=== PATIENT | female | born 1990 | race Caucasian/White ===

== ENCOUNTER 2023-04-19 16:35 | Day surgery (SDC) | payer BC, SELFPAY ==
[2023-04-19] VITALS (16 sets, daily range): BP systolic 88–127; BP diastolic 41–91; BMI 20.2; BMI 17.6
--- NOTE | 2023-04-19 10:56 | ED.GENMED ---
History of Present Illness
<Aide Nance PA-C - Last Filed: 04/19/23 17:50>
General
Chief Complaint: Abdominal Symptoms
Source: patient
Exam Limitations: none
Time Seen by Provider: 04/19/23 10:29
Nursing documentation reviewed up to this point in time: agreed with
Travel History
Have you had any contact with someone who has COVID-19?: No
Do you have any symptoms of coronavirus? Fever > 100 degrees, chills, cough, shortness of breath, sore throat, loss of taste or smell, muscle aches, or headache?: No
History of Present Illness
History of Present Illness:
Patient is a 33-year-old female with history of GERD presenting for evaluation of epigastric/right upper quadrant abdominal pain. Symptoms started on Monday after she left the movie theater and ate popcorn. Symptoms have progressively worsened and
are now constant. Pain is worse with movement. She endorses intermittent nausea and chills with a few episodes of vomiting and diarrhea. No known fever. No urinary symptoms. Her LMP was 2 weeks ago.
She tried taking her PPI which did not help.
She is on an oral contraceptive.
Phy Exam
<Aide Nance PA-C - Last Filed: 04/19/23 17:50>
Physical Exam
Physical Exam:
General: Well appearing and non-toxic
Vitals: Vital signs stable, afebrile
HEENT: protecting airway
Neck: appears supple
CV: Regular rate and rhythm, heart sounds normal, no evidence of cyanosis
Resp: Lungs clear bilaterally, no evidence of respiratory distress
Abd: Soft, tender in epigastric and right upper quadrant without rebound or guarding, positive Arredondo sign, non-distended; no CVA tenderness
Extremities: No deformities, no evidence of cyanosis or edema
Neuro: alert and oriented x 3, grossly intact
Psych: Normal affect
Skin: Intact, no rashes
Course
<Aide Nance PA-C - Last Filed: 04/19/23 17:50>
Orders/Labs/Results
Orders:
Orders
04/19/23 Breakfast
NPO
Allow oral meds: No
Allow clear liquids: No
04/19/23 10:53
0.9% Sodium Chloride 1000 ml [Nss] 1,000 ml IV BOLUS
Ondansetron Injectable [Zofran] 4 mg IV NOW STA
Test Result ONCE
US Abdomen Complete/Upper Urgent
Comment:
Reason For Exam: right upper quadrant/epigastric abdominal pain
04/19/23 10:54
Ketorolac [Toradol] 15 mg IV NOW STA
04/19/23 11:03
Electrocardiogram (*1) Urgent
Reason for Study: Abdominal Pain
EKG- Treatment ONCE
04/19/23 11:06
Complete Blood Count/With Diff Urgent
Comprehensive Metabolic Panel Urgent
HCG, Serum Qualitative Screen Urgent
Lipase Urgent
04/19/23 12:28
Piperacillin/Tazo 3.375 Gram [Zosyn] 3.375 gram in 50 ml IV NOW
04/19/23 13:14
Admit Patient As Directed
Co-Sign Provider:
Level of Care: Post Proc/Surg Recovery
Assign to:: Medical/Surgical
Physician / Group: Waylon
Diagnosis: Biliary colic
Reason for Overnight Stay: Standard of Care
Code Status As Directed
Resuscitation Status: Full Code
HYDROmorphone [Dilaudid] 0.5 mg IV Q2HPRN PRN
HYDROmorphone [Dilaudid] 1 mg IV Q2HPRN PRN
Ondansetron Injectable [Zofran] 4 mg IV Q6HPRN PRN
Activity As Directed
Activity Level: Out of Bed-Early Mobility
Anti-embolism (BART) Hose As Directed
Type: Thigh high
Intake/ Output As Directed
Frequency: Per unit guidelines
Vital Signs As Directed
Frequency: Per unit guidelines
DX Deep Vein Thrombosis Video Routine
04/19/23 13:15
Pneumatic Compression Sleeves As Directed
Type: Knee high
Rx Incentive Spirometry [RESP] Routine
Frequency: q1h while awake
# of times per hour: 10
04/19/23 15:00
CefoTEtan [Cefotan] 2,000 mg IV PRE PROCEDURE ONE
Sterile Water [Sterile Water For Injection] 10 ml IV PRE PROCEDURE ONE
04/19/23 15:35
Dexamethasone Sod Phosphate [Decadron] 20 mg .ROUTE .STK-MED ONE
Fentanyl Citrate/Pf [Sublimaze] 100 mcg .ROUTE .STK-MED ONE
Lidocaine HCl/Pf [Xylocaine-Mpf 1% Vial] 50 mg .ROUTE .STK-MED ONE
Midazolam HCl [Versed] 2 mg .ROUTE .STK-MED ONE
Ondansetron Injectable [Zofran] 4 mg .ROUTE .STK-MED ONE
Propofol [Diprivan] 20 ml .ROUTE .STK-MED
Rocuronium [place] [Rocuronium] 50 mg .ROUTE .STK-MED ONE
04/19/23 15:52
HYDROmorphone [Dilaudid] 0.25 mg IV PACU-Q5MPRN PRN
HYDROmorphone [Dilaudid] 0.5 mg IV PACU-Q5MPRN PRN
Meperidine [Demerol] 12.5 mg IV PACU-Q5MPRN PRN
Ondansetron Injectable [Zofran] 4 mg IV PACU-ONCEPRN PRN
Prochlorperazine [Compazine] 5 mg IV PACU-ONCEPRN PRN
Notify MD As Directed
Notify physician if: for SDS patients with known or suspected sleep obstructive sleep apnea, monitor in the
PACU.
Notify MD for any apneic/desaturation episodes
O2 Therapy [RESP] Urgent
Titrate/Wean O2 to maintain O2 sat greater than (%): 92
Special Instructions: -Provide supplemental oxygen to achieve O2 sat of 92% or greater.
-After 15 min, may wean O2 and discontinue if patient is able to maintain O2 sat of 92%
or greater during recovery period.
If patient is a discharge home, without oxygen therapy, notify anestheiologist if
unable to maintain O2 SAT of 92% or greater on room air for MD clearance.
04/19/23 16:00
Normosol (Mult Electrolytes) [Normosol-R] 1,000 ml IV PER PROTOCOL
04/19/23 16:10
HYDROmorphone [Dilaudid] 0.25 mg IV PACU-Q5MPRN PRN
HYDROmorphone [Dilaudid] 0.5 mg IV PACU-Q5MPRN PRN
Meperidine [Demerol] 12.5 mg IV PACU-Q5MPRN PRN
Ondansetron Injectable [Zofran] 4 mg IV PACU-ONCEPRN PRN
Prochlorperazine [Compazine] 5 mg IV PACU-ONCEPRN PRN
Notify MD As Directed
Notify physician if: for SDS patients with known or suspected sleep obstructive sleep apnea, monitor in the
PACU.
Notify MD for any apneic/desaturation episodes
O2 Therapy [RESP] Urgent
Titrate/Wean O2 to maintain O2 sat greater than (%): 92
Special Instructions: -Provide supplemental oxygen to achieve O2 sat of 92% or greater.
-After 15 min, may wean O2 and discontinue if patient is able to maintain O2 sat of 92%
or greater during recovery period.
If patient is a discharge home, without oxygen therapy, notify anestheiologist if
unable to maintain O2 SAT of 92% or greater on room air for MD clearance.
04/19/23 16:15
Normosol (Mult Electrolytes) [Normosol-R] 1,000 ml IV PER PROTOCOL
04/20/23 18:00
Enoxaparin Sodium [Lovenox] 40 mg SC QPM
Abnormal Lab Results
04/19/23
11:06
MCH 31.1 H pg
(27.0-31.0)
04/19/23 11:06
04/19/23 11:06
Vital Signs
Initial and Last Documented VS:
Initial Vital Signs
Temp Pulse Resp BP Pulse Ox
98.0 F 84 16 127/87 98
04/19/23 09:40 04/19/23 09:40 04/19/23 09:40 04/19/23 09:40 04/19/23 09:40
Last Documented Vital Signs
Temp Pulse Resp BP Pulse Ox
98.0 F 86 16 122/91 100
04/19/23 09:40 04/19/23 14:54 04/19/23 09:40 04/19/23 14:38 04/19/23 14:45
Kylielt;Chaparro Perez, - Last Filed: 04/19/23 12:42>
Orders/Labs/Results
Orders:
Orders
04/19/23 Breakfast
NPO
Allow oral meds: No
Allow clear liquids: No
04/19/23 10:53
0.9% Sodium Chloride 1000 ml [Nss] 1,000 ml IV BOLUS
Ondansetron Injectable [Zofran] 4 mg IV NOW STA
Test Result ONCE
US Abdomen Complete/Upper Urgent
Comment:
Reason For Exam: right upper quadrant/epigastric abdominal pain
04/19/23 10:54
Ketorolac [Toradol] 15 mg IV NOW STA
04/19/23 11:03
Electrocardiogram (*1) Urgent
Reason for Study: Abdominal Pain
EKG- Treatment ONCE
04/19/23 11:06
Complete Blood Count/With Diff Urgent
Comprehensive Metabolic Panel Urgent
HCG, Serum Qualitative Screen Urgent
Lipase Urgent
04/19/23 12:28
Piperacillin/Tazo 3.375 Gram [Zosyn] 3.375 gram in 50 ml IV NOW
04/19/23 13:14
Admit Patient As Directed
Co-Sign Provider:
Level of Care: Post Proc/Surg Recovery
Assign to:: Medical/Surgical
Physician / Group: Waylon
Diagnosis: Biliary colic
Reason for Overnight Stay: Standard of Care
Code Status As Directed
Resuscitation Status: Full Code
HYDROmorphone [Dilaudid] 0.5 mg IV Q2HPRN PRN
HYDROmorphone [Dilaudid] 1 mg IV Q2HPRN PRN
Ondansetron Injectable [Zofran] 4 mg IV Q6HPRN PRN
Activity As Directed
Activity Level: Out of Bed-Early Mobility
Anti-embolism (BART) Hose As Directed
Type: Thigh high
Intake/ Output As Directed
Frequency: Per unit guidelines
Vital Signs As Directed
Frequency: Per unit guidelines
DX Deep Vein Thrombosis Video Routine
04/19/23 13:15
Pneumatic Compression Sleeves As Directed
Type: Knee high
Rx Incentive Spirometry [RESP] Routine
Frequency: q1h while awake
# of times per hour: 10
04/19/23 15:00
CefoTEtan [Cefotan] 2,000 mg IV PRE PROCEDURE ONE
Sterile Water [Sterile Water For Injection] 10 ml IV PRE PROCEDURE ONE
04/19/23 15:35
Dexamethasone Sod Phosphate [Decadron] 20 mg .ROUTE .STK-MED ONE
Fentanyl Citrate/Pf [Sublimaze] 100 mcg .ROUTE .STK-MED ONE
Lidocaine HCl/Pf [Xylocaine-Mpf 1% Vial] 50 mg .ROUTE .STK-MED ONE
Midazolam HCl [Versed] 2 mg .ROUTE .STK-MED ONE
Ondansetron Injectable [Zofran] 4 mg .ROUTE .STK-MED ONE
Propofol [Diprivan] 20 ml .ROUTE .STK-MED
Rocuronium [place] [Rocuronium] 50 mg .ROUTE .STK-MED ONE
04/19/23 15:52
HYDROmorphone [Dilaudid] 0.25 mg IV PACU-Q5MPRN PRN
HYDROmorphone [Dilaudid] 0.5 mg IV PACU-Q5MPRN PRN
Meperidine [Demerol] 12.5 mg IV PACU-Q5MPRN PRN
Ondansetron Injectable [Zofran] 4 mg IV PACU-ONCEPRN PRN
Prochlorperazine [Compazine] 5 mg IV PACU-ONCEPRN PRN
Notify MD As Directed
Notify physician if: for SDS patients with known or suspected sleep obstructive sleep apnea, monitor in the
PACU.
Notify MD for any apneic/desaturation episodes
O2 Therapy [RESP] Urgent
Titrate/Wean O2 to maintain O2 sat greater than (%): 92
Special Instructions: -Provide supplemental oxygen to achieve O2 sat of 92% or greater.
-After 15 min, may wean O2 and discontinue if patient is able to maintain O2 sat of 92%
or greater during recovery period.
If patient is a discharge home, without oxygen therapy, notify anestheiologist if
unable to maintain O2 SAT of 92% or greater on room air for MD clearance.
04/19/23 16:00
Normosol (Mult Electrolytes) [Normosol-R] 1,000 ml IV PER PROTOCOL
04/19/23 16:10
HYDROmorphone [Dilaudid] 0.25 mg IV PACU-Q5MPRN PRN
HYDROmorphone [Dilaudid] 0.5 mg IV PACU-Q5MPRN PRN
Meperidine [Demerol] 12.5 mg IV PACU-Q5MPRN PRN
Ondansetron Injectable [Zofran] 4 mg IV PACU-ONCEPRN PRN
Prochlorperazine [Compazine] 5 mg IV PACU-ONCEPRN PRN
Notify MD As Directed
Notify physician if: for SDS patients with known or suspected sleep obstructive sleep apnea, monitor in the
PACU.
Notify MD for any apneic/desaturation episodes
O2 Therapy [RESP] Urgent
Titrate/Wean O2 to maintain O2 sat greater than (%): 92
Special Instructions: -Provide supplemental oxygen to achieve O2 sat of 92% or greater.
-After 15 min, may wean O2 and discontinue if patient is able to maintain O2 sat of 92%
or greater during recovery period.
If patient is a discharge home, without oxygen therapy, notify anestheiologist if
unable to maintain O2 SAT of 92% or greater on room air for MD clearance.
04/19/23 16:15
Normosol (Mult Electrolytes) [Normosol-R] 1,000 ml IV PER PROTOCOL
04/20/23 18:00
Enoxaparin Sodium [Lovenox] 40 mg SC QPM
Abnormal Lab Results
04/19/23
11:06
MCH 31.1 H pg
(27.0-31.0)
04/19/23 11:06
04/19/23 11:06
Vital Signs
Initial and Last Documented VS:
Initial Vital Signs
Temp Pulse Resp BP Pulse Ox
98.0 F 84 16 127/87 98
04/19/23 09:40 04/19/23 09:40 04/19/23 09:40 04/19/23 09:40 04/19/23 09:40
Last Documented Vital Signs
Temp Pulse Resp BP Pulse Ox
98.0 F 86 16 122/91 100
04/19/23 09:40 04/19/23 14:54 04/19/23 09:40 04/19/23 14:38 04/19/23 14:45
<Aide Nance PA-C - Last Filed: 04/19/23 17:50>
MDM/Problems Addressed
Differential Diagnosis Includes:
Cholelithiasis, cholecystitis, choledocholithiasis, pancreatitis, GERD, gastritis
MDM/Problems Addressed:
Patient is a 33-year-old female history GERD presenting for evaluation of right upper quadrant abdominal pain that has been progressively worsening and constant since this past Monday. Some associated nausea, vomiting, chills. No fever, urinary
symptoms. Symptom onset was initially after leaving the movie theater 4 days ago. Patient is afebrile, with stable vital signs. Physical exam as document above. She is moderately tender and right upper quadrant with a positive Arredondo sign.
Patient does not appear septic. Will obtain basic labs, lipase, . Will get ultrasound of upper abdomen. Given epigastric pain component�will get ECG to ensure no cardiac etiology. Start IV fluids, Zofran, Toradol.
CBC without any clinically significant abnormalities. CMP normal. Lipase normal. hCG negative. Ultrasound pending.
On repeat exam�patient does appear more comfortable following Toradol states pain is less severe
Ultrasound shows cholelithiasis and positive sonographic Arredondo sign.. No evidence of gallbladder sludge, wall thickening. Despite normal white count, normal liver enzymes, afebrile�concern that this may be cholecystitis based on the fact that
pain has been constant over the past 4 days with associated chills. Will discuss with general surgeon
General surgeon in to see patient. Offered elective outpatient cholecystectomy versus hospital admission and cholecystectomy today/tomorrow. Patient opts for admission and cholecystectomy. Will continue IV fluids. General surgeon will do preop
antibiotics. Will admit to surgery service.
Chronic conditions affecting care:
GERD
Acute Exacerbation and/or Progression of Chronic Illness:
Acute cholecystitis
<Aide Nance PA-C - Last Filed: 04/19/23 17:50>
*Radiology
Radiology exam reviewed: preliminary read by ED provider and radiology read reviewed
*Pulse Oximetry
Patient hypoxic: no
*EKG
Interpreted by ED Provider?: Yes
Interpretation: normal
Comparison EKG: no comparison EKG present
Heart Rate: 68
Rate: normal
Rhythm: sinus
[place]: normal axis
Interval: normal interval
QRS Pattern: normal QRS
Ischemia: no ischemia
*Service Now Developer Interpretation
Rate: Service Now Developer- N/A
*Critical Care Note
Total Time (30-74mins, 75-104mins- exclusive of procedures): Not Applicable
<Aide Nance PA-C - Last Filed: 04/19/23 17:50>
Patient Management
Discussion with other providers: Road Commissioner (general surgery)
ED Attending Note
<ROHINI Swann Last Filed: 04/19/23 17:50>
-
Portions of this chart may have been created with voice recognition software.� Occasional wrong word or��sound alike� substitutions may have occurred due to the inherent limitations of voice recognition software.
<Chaparro Perez DO - Last Filed: 04/19/23 12:42>
ED Attending Note
Patient seen and examined by attending physician: Yes
I performed the substantive portion of visit, reviewed & personally made and approve the management plan that is documented in note by myself or BARBARA.: Yes
ED Attending Note:
I agree with Devorah's note
Patient presents with right upper quad abdominal pain that has been present for the past 2 to 3 days. Increasing in nature. Positive nausea.
Afebrile
Abdomen: Right upper quadrant tenderness to palpation. Rest of the abdomen is benign.
Suspect acute cholecystitis versus gastritis versus GERD. Analgesia ordered. Ultrasound pending.
u/s report reviewed---+ sonographic Arredondo's sign, + cholelithiasis
Given pain has been present for 3 days and is no better (in fact worse) suspect acute cholecystitis.
Gen Surg contacted.
Discharge Plan
Departure
Patient Disposition: Admit
Date of Disposition: 04/19/23
Time of Disposition: 13:20
Admit to: OR
Admit to doctor: Dr. Connors
Presentation/result/management discussed w/ accepting MD/DO: Dr. Connors
Discharge Problem:
Acute cholecystitis
Interventions
Interventions:
*Risk Screen - Suicide Last Done: 04/19/23 11:02
*General Assessment Last Done: 04/19/23 11:02
*Neglect/Abuse Screening Last Done: 04/19/23 11:02
ED- Fall Risk Assessment Last Done: 04/19/23 11:03
*ED COVID-19 Vaccine History Last Done: 04/19/23 09:40
HG-Rrchqf-Uapxumhxjn Assessment Last Done: 04/19/23 11:03
[2023-04-19] MEDS: TORADOL 15 MG IV (11:08)
[2023-04-19] MEDS: ZOFRAN 4 MG IV (11:08)
[2023-04-19] MEDS: NSS 1000 IV ×2 (11:09→21:17)
[2023-04-19 11:13] LABS: % Basophils 0.3 % (0-2); % Eosinophils 0.4 % (0-6); % Immature Granulocytes 0.4 % (0-0.5); % Lymphocytes 21.4 % (20.5-51.1); % Monocytes 7.1 % (1.7-9.3); % Neutrophils 70.4 % (42.2-75.2); Absolute Lymphocytes 1.9 10^3/uL (1.2-3.4); Absolute Monocytes 0.6 10^3/uL (0.1-0.6); Absolute Neutrophils 6.3 10^3/uL (1.4-6.5); Hemoglobin 13.4 g/dL (12.0-16.0); Mean Corp Hgb Conc. 35.3 g/dL (33.0-37.0); Mean Corpuscular Hgb 31.1 pg (27.0-31.0); Mean Corpuscular Volume 88.2 fL (81.0-99.0); Mean Platelet Volume 10.4 fL (7.4-10.4); Nucleated Red Blood Cells % 0 %; Platelet Count 200 10^3/uL (130-400); Red Blood Cell Count 4.31 10^6/uL (4.20-5.40); Red Cell Dist. Width 11.9 % (11.5-14.5); White Blood Cell Count 8.9 10^3/uL (4.8-10.8)
[2023-04-19 11:23] LABS: HCG, Serum Qualitative Screen Negative
[2023-04-19 11:31] LABS: ALT (SGPT) 17 U/L (0-35); AST (SGOT) 26 U/L (14-36); Albumin 4.7 g/dl (3.5-5.0); Alkaline Phosphatase 51 U/L (38-126); Blood Urea Nitrogen 9 mg/dl (7-17); Calcium 9.5 mg/dl (8.4-10.2); Carbon Dioxide 23 mmol/L (22-30); Chloride 101 mmol/L (98-107); Estimated Creatinine Clearance 81 ml/min; Glucose 86 mg/dl (70-99); Potassium 3.9 mmol/L (3.5-5.1); Sodium 136 mmol/L (135-145); Total Protein 7.7 g/dl (6.3-8.2); eGFR > 60.00
[2023-04-19 11:52] LABS: Lipase 152 U/L (23-300)
--- NOTE | 2023-04-19 13:17 | CON.GS ---
Addendum entered and electronically signed by Haim Connors MD 04/19/23 13:26:
D/w and pt together on speakerphone. All ?s answered.
Original Note:
Consultation
-
Requesting Provider: Chris
Performing Provider: Waylon
Reason for Consultation: Abd pain
Medical History
-
Chief Complaint: Abd pain
History of Present Illness:
33F with 1 year hx of progressive GI complaint. Mostly epigastric pain, was dx'ed with reflux and started on PPI. Over the past 2 months she feels her pain worsened, and then Monday after eating popcorn it acutely worsened and over the past few days
it has been constant and seems to be increasing and has migrated slightly to the right upper quadrant. She looks very comfortable during my encounter and is smiling and laughing. She rpoerts her pain is now improved. Denies changes to stool/urine.
Denies f/c, endorses n/v.
Past Medical History
Past Medical History: Reviewed & Noncontributory
Past Surgical History: Reviewed & Noncontributory
Social History
Tobacco: Non-Smoker
Alcohol: None
Drug: None
Personal:
Living: With Family
Employment: Employed
Family History
Family History: Reviewed & Noncontributory
Allergies / Home Medications
Allergy/AdvReac Type Severity Reaction Status Date / Time
bacitracin Allergy Rash Verified 04/19/23 09:44
[From Neosporin
([id number])]
neomycin Allergy Rash Verified 04/19/23 09:44
[From Neosporin
([id number])]
polymyxin B Allergy Rash Verified 04/19/23 09:44
[From Neosporin
([id number])]
Review of Systems
-
A 10 point review of systems was completed, and was negative except as per HPI.
Physical Exam
Vital Signs
Temp Pulse Resp BP Pulse Ox
98.0 F 84 16 127/87 100
04/19/23 09:40 04/19/23 09:40 04/19/23 09:40 04/19/23 09:40 04/19/23 11:05
04/18/23 04/19/23 04/20/23
06:59 06:59 06:59
Actual Weight 47 kg
Body Mass Index (BMI) 20.2
Lab Results
04/19/23 11:06
04/19/23 11:06
WBC 8.9 10^3/uL (4.8-10.8) 04/19/23 11:06
Hgb 13.4 g/dL (12.0-16.0) 04/19/23 11:06
Hct 38.0 % (37.0-47.0) 04/19/23 11:06
Plt Count 200 10^3/uL (130-400) 04/19/23 11:06
Abs Immat Gran (auto) 0.0 10^3/uL (0-0.05) 04/19/23 11:06
Neutrophils % 70.4 % (42.2-75.2) 04/19/23 11:06
Physical Exam
General: Well Developed, Well Nourished and No Apparent Distress
HEENT: Normocephalic and Anicteric
GI: Soft, Non Distended and Tender (very mild ttp to RUQ)
Skin: Warm and Dry
Neuro: AO x 3
Psych: Calm
Data Reviewed
-
Ultrasound: Image Personally Visualized and interpreted, Report Reviewed by me, Discussed with Nurse, Discussed with Patient and Discussed with Family
Labs: Labs Reviewed by me, Discussed with Nurse and Discussed with Family
Assessment / Plan
-
33F with biliary colic vs ACC
AFVSS, intermittent pain for a year, recently increased and has been constant for 2-3 days
No leukocytosis
No shift
LFTs WNL
US with stones, no GBWT, no PCF, CBD WNL
We discussed CCY now vs PO challenge and return for elective CCY at a later date if she does well, she prefers to undergo surgery this admission.
Risks, benefits, complications and alternatives were discuss in detail including but not limited to pain, bleeding, infection, injury to intra-abdominal structures, conversion to open and the pt verbalized understanding and agreed to proceed.
Admit to GS
Added on for today for lap jose luis
Cefotetan IV OCTOR
DVT ppx
--- NOTE | 2023-04-19 19:15 | W.PN.SURGUPD ---
Surgical Update
Surgical Update
Patient seen in follow-up in preoperative holding area. OR room available this evening out to proceed with laparoscopic cholecystectomy.
Patient's history reviewed independently with her at this time. Workup and evaluation consistent with acute biliary colic versus acute calculus cholecystitis. She is in agreement to proceed with cholecystectomy for definitive management.
Laparoscopic cholecystectomy was reviewed in detail utilizing a diagram/drawing. We discussed alternative treatment options, benefits and risks of surgery such as but not limited to bleeding, infectious or wound related complications, iatrogenic
injury to surrounding viscera, bile leak, common bile duct injury and postcholecystectomy syndrome. We discussed typical postoperative recovery pending operative findings.
Any of the patient's or her 's questions were fully addressed and written informed consent was obtained.
--- NOTE | 2023-04-19 19:17 | W.SUR.PREOP ---
Pre-Operative Surgical Note
-
I have examined this patient prior to the performance of the scheduled procedure.
The patient's condition is unchanged from the time of the current History and
Physical and the patient is able to undergo the scheduled procedure.
--- NOTE | 2023-04-19 20:30 | W.IMMPOSTOP ---
Addendum entered and electronically signed by Moshe Davis MD 04/20/23 16:19:
#[id number]
Original Note:
Surgical Immed Post Op Note
-
Primary Surgeon: Susan
Assisting Surgeon: None
Pre-op Diagnosis: ACC
Post-op Diagnosis: ACC
Procedure Performed: Lap Madhuri
Anesthesia Type: GETA + 0.25% Marcaine
Specimen / Cultures: GB
Estimated Blood Loss: 8mL
Complications: none immediate
Operative Findings: enlarged/tensely distended GB with large stone impacted in neck of GB with resultant cystic duct obstruction. surrounding inflammatory changes. cystic duct and artery individually identified and controlled with clips. GB
removed off liverbed intact and extracted at epigastric 12mm trochar site which had to be enlarged to removed GB with large stone.
Plan: routine post op care
--- NOTE | 2023-04-19 22:43 | PTCARENOTE ---
Received pt from PACU at 2144. Pt AAOx3, denying pain/nausea. 4 lap sites with surgical glue CDI. VSS, no needs at this time. Oriented to room, call naranjo and plan of care.
[2023-04-20 01:07] VITALS: BP 110/71
[2023-04-20 03:50] VITALS: BP 122/90
[2023-04-20] MEDS: NSS 1000 IV (06:57)
[2023-04-20 07:00] VITALS: BP 112/74
--- NOTE | 2023-04-20 07:30 | W.PN.SURGUPD ---
Surgical Update
Surgical Update
pt seen and examined
doing well post op
ordered breakfast, post op pain controlled, no narcotics over night
AFVSS
ABD: soft, ND, mild incisional tenderness
incisions with glue dressings
A/P: POD#1 lap jose lusi for ACC
low fat diet
d/c home
instructions reviewed
--- NOTE | 2023-04-20 07:41 | W.DS.TRANS ---
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
-
Discharge Instructions:
Discharge Diagnosis/Procedures laparoscopic cholecystectomy. acute calculous
cholecystitis
Diet As tolerated,Low Fat
Activity No strenuous activity
Driving Restrictions No driving for 24 hours
Bathing Restrictions OK to Shower
Wound Care Glue at surgical sites typically peels off in 2
to 3 weeks
Instructions:
Stand-Alone Forms:
Changes to Home Medications: No
Discharge Medications:
DC Medications w/original date entered in [facility]
Vitamin C 1 tab PO TIDPRN PRN supplement 04/19/23
cholecalciferol (vitamin D3) 50 mcg (2,000 unit) tablet 50 mcg PO DAILY PRN supplement 04/19/23
famotidine 40 mg tablet 40 mg PO DAILY PRN gerd 04/19/23
magnesium oxide 500 mg PO DAILY PRN supplement 04/19/23
norethindrone acetate 1.5 mg-ethinyl estradiol 30 mcg tablet (Junel) 1 tab PO DAILY@2100 04/19/23
simethicone 80 mg chewable tablet 80 mg PO DAILYPRN PRN mild stomach discomfort 04/19/23
simethicone 80 mg chewable tablet 160 mg PO DAILYPRN PRN severe stomach discomfort 04/19/23
turmeric 400 mg capsule 800 mg PO BIDPRN PRN supplement 04/19/23
zinc 25 mg tablet 25 mg PO DAILYPRN PRN supplement 04/19/23
acetaminophen 500 mg tablet (Tylenol Extra Strength) 1,000 mg PO Q6HPRN PRN mild pain #1 tab 04/20/23
ibuprofen 200 mg tablet 400 mg PO Q6HPRN PRN moderate pain #1 tab 04/20/23
oxycodone 5 mg tablet 5 mg PO Q4HPRN PRN breakthrough/severe pain #7 tabs 04/20/23
polyethylene glycol 3350 17 gram/dose oral powder (Miralax) 4 g PO DAILY PRN Constipation #119 grams 04/20/23
Home Medication Changes
Pending Results: No
[2023-04-20] MEDS: TYLENOL 1000 MG PO (08:48)
[2023-04-20 11:00] VITALS: BP 118/77
--- NOTE | 2023-04-20 17:04 | CM ---
met with patient at bedside.patient is adm with biliary colic and is sp meche amaya.patient lives with in an apt with 15 steps to enter,her bed and bath is on the first level.she amb i and is i with hr adl's.patient has never had a vn or been
to ip rrehab.patient is stable to dc home with no needs.
== END 2023-04-20 14:19 | disposition home or self-care (01) ==
LOC: SDS 16:35
PROVIDERS: Physician Assistant; ATTENDING PHYSICIAN Surgery; EMERGENCY PHYSICIAN Emergency Medicine; FAMILY PHYSICIAN Family Medicine
DX: K80.10 Calculus of gallbladder with chronic cholecystitis without obstruction (principal)
CPT/HCPCS: 47562; 88304; 76700; 80053; 83690; 84703; 85025; 93005; 96374; 96375; 99285